=== PATIENT | female | born 1990 | race Two or more races ===

== ENCOUNTER 2023-09-15 19:57 | Inpatient (IN) | payer MEDICAID, OTHER ==
[~2023-09-15] VITALS: Ht 154.9 cm; Wt 83.9 kg
[2023-09-15] MEDS ORDERED: PROMETHAZINE HCL 25 MG/ML 1ML IV PRN (20:45)
[2023-09-15] MEDS ORDERED: WITCH HAZEL-GLYCERIN PAD TOP PRN (20:45)
[2023-09-15] MEDS ORDERED: PENICILLIN G POT 5MIL/D5 50ML 50 ML IV ONE (20:45)
[2023-09-15] MEDS ORDERED: LIDOCAINE 2%HCL (LOCAL ANESTH.) INJ 20ML MDV IJ PRN (20:45)
[2023-09-15] MEDS ORDERED: PHISODERM TOP SOLN 240ML BTL TOP PRN (20:45)
[2023-09-15] MEDS ORDERED: LACTATED RINGER'S 1,000 ML IV SCH ×2 (20:45→21:30)
[2023-09-15] MEDS ORDERED: DERMOPLAST 60ML BOTTLE TOP PRN (20:45)
[2023-09-15] MEDS ORDERED: MAGNESIUM SULFATE 100 ML IV ONE ×2 (21:10→21:30)
[2023-09-15] MEDS ORDERED: MAGNESIUM SULFATE 40MG/ML 1,000 ML IV ONE (21:10)
[2023-09-15] MEDS ORDERED: LORazepam 2MG/ML-1ML VIAL IV PRN (21:30)
[2023-09-15 21:41] LABS: Basophils # (auto) 0 10 ^3/uL (0-0.2); Basophils % (auto) 0.2 % (0.0-2.0); Eosinophils # (auto) 0.2 10 ^3/uL (0-0.8); Eosinophils % (auto) 2.4 % (0.0-7.0); Hemoglobin 10.6 g/dL (12.2-16.2); Lymphocytes # (auto) 2.6 10 ^3/uL (0.4-5.4); Lymphocytes % (auto) 29.2 % (10.0-50.0); Mean Corpuscular Hemoglobin 29.2 pg (28.0-32.0); Mean Corpuscular Hgb Conc. 33.2 g/dL (32.0-36.0); Mean Corpuscular Volume 87.8 fL (80.0-100.0); Monocytes # (auto) 0.8 10 ^3/uL (0-1.3); Monocytes % (auto) 8.6 % (0.0-12.0); Neutrophils # (auto) 5.2 10 ^3/uL (1.6-8.6); Neutrophils % (auto) 59.6 % (37.0-80.0); Nucleated Red Blood Cells % 0.2 %; Red Blood Cells 3.65 10^6/uL (4.0-5.20); Red Cell Distribution Width 13.7 % (11.8-14.3); White Blood Cell 8.8 10^3/uL (4.4-10.8)
[2023-09-15 21:57] LABS: INR 0.94 (0.9-1.15); Partial Thromboplastin Time 24.3 SEC (24.5-34.5); Prothrombin Time 9.9 sec (9.3-11.8)
[2023-09-15 22:00] LABS: Alanine Aminotransferase 46 U/L (7-40); Albumin 3.4 g/dL (3.2-4.8); Alkaline Phosphatase 176 U/L (46-116); Anion Gap 8 (5-15); Aspartate Aminotransferase 44 U/L (13-40); BUN/Creatinine Ratio 12.5 (10.0-20.0); Blood Urea Nitrogen 7 mg/dL (9-23); Calcium 8.3 mg/dL (8.7-10.4); Carbon Dioxide 21 mmol/L (20-30); Chloride 109 mmol/L (98-107); Glucose 72 mg/dL (74-106); Potassium 3.6 mmol/L (3.5-5.1); Sodium 138 mmol/L (136-145); Uric Acid 4.2 mg/dL (3.1-7.8)
[2023-09-15 22:01] LABS: Bilirubin, Total 0.4 mg/dL (0.2-1.0); Total Protein 5.7 g/dL (5.7-8.2)
[2023-09-15 22:53] LABS: COVID19 ANTIGEN SOFIA FIA NEGATIVE (NEGATIVE)
[2023-09-15 23:10] LABS: Urine Bacteria NONE SEEN /hpf (None Seen); Urine Blood Negative /uL (Negative); Urine Clarity Clear (Clear); Urine Color Yellow (Yellow); Urine Mucus FEW (None Seen); Urine Protein, UAD 2+ (Negative); Urine Specific Gravity 1.019 (1.001-1.035); Urine Urobilinogen Normal (Negative); Urine WBC 1 /hpf (0 - 5)
[2023-09-15 23:20] LABS: Protein, Urine 192.1 mg/dL (0.0-11.9)
[2023-09-15 23:22] LABS: Amphetamine Screen, Urine Neg (NEGATIVE)
[2023-09-15 23:23] LABS: Barbiturate Scree,Urine Neg (NEGATIVE); Benzodiazephine Screen, Urine Neg (NEGATIVE); Cannabinoid Screen, Urine Neg (NEGATIVE); Cocaine Screen, Urine Neg (NEGATIVE); Creatinine, Urine 98.81 mg/dL (30.0-125.0); Opiate Scree,Urine Neg (NEGATIVE); Phencyclidine Screen, Urine Neg (NEGATIVE); Urine Protein/Creatinine Ratio 1.94
[2023-09-16] VITALS (8 sets, daily range): BP systolic 119–149; BP diastolic 66–93; PULSE 77–99; RESP 15–18; TEMP 98.6–98.7; O2SAT 95–99
[2023-09-16] MEDS ORDERED: PENICILLIN G POTASSIUM 2,500,000 UNITS in D5W 5% 50 ML IV SCH (00:45)
[2023-09-16] MEDS ORDERED: NALOXONE HCL 0.4 MG/ML VIAL IV ONE (02:00)
[2023-09-16] MEDS ORDERED: LACT. RINGERS/OXYTOCIN 20UNITS 1,000 ML IV SCH (02:00)
[2023-09-16] MEDS ORDERED: CARBOPROST TROMETHAMINE 250 MCG/1ML VIAL IM PRN (02:00)
[2023-09-16] MEDS ORDERED: LACT. RINGERS/OXYTOCIN 20UNITS 500 ML IV ONE ×2 (02:00→02:30)
[2023-09-16] MEDS ORDERED: miSOPROStol 100 mcg TAB SL PRN (02:00)
[2023-09-16] MEDS ORDERED: ePHEDrine SULFATE 50 MG/ML AMP IV ONE (02:00)
[2023-09-16] MEDS ORDERED: ROPIVACAINE HCL 200 ML EPI SCH ×2 (02:00→03:00)
[2023-09-16] MEDS ORDERED: miSOPROStol 100 mcg TAB PR PRN (02:00)
[2023-09-16] MEDS ORDERED: LACTATED RINGER'S 1,000 ML IV ONE (02:00)
[2023-09-16] MEDS ORDERED: TERBUTALINE SULFATE 1 MG/ML 1ML VIAL SC PRN (02:00)
[2023-09-16] MEDS ORDERED: ONDANSETRON HCL 4 MG/2 ML VIAL IV PRN (06:45)
[2023-09-16] MEDS ORDERED: ACETAMINOPHEN 325 MG TAB PO STA (08:39)
[2023-09-16] MEDS ORDERED: ACETAMINOPHEN 325 MG TAB PO ONE (09:03)
[2023-09-16] MEDS ORDERED: HYDROcodone-ACET 5/325MG TAB PO PRN (11:00)
[2023-09-16] MEDS: LACTATED RINGER'S 1,000 ML IV SCH (11:15)
[2023-09-16] MEDS: IBUPROFEN 600 MG TAB PO PRN (16:09)
[2023-09-16] MEDS: DIPHENOXYLATE W/ATROPINE 2.5 MG TAB PO SCH (16:13)
[2023-09-16] MEDS: LABETALOL HCL 200 MG TAB PO SCH (18:35)
[2023-09-16] MEDS: DOCUSATE SOD 100 MG CAP PO SCH (21:36)
[2023-09-17 03:20] VITALS: BP 132/66; PULSE 65; RESP 18; TEMP 98.7; O2SAT 96
[2023-09-17] MEDS: LABETALOL HCL 200 MG TAB PO SCH ×2 (06:39→18:28)
[2023-09-17 06:56] VITALS: BP 122/71; PULSE 80; RESP 17; TEMP 97.6; O2SAT 96
[2023-09-17] MEDS: DIPHENOXYLATE W/ATROPINE 2.5 MG TAB PO SCH ×2 (10:00→22:00)
[2023-09-17 10:57] VITALS: BP 116/56; PULSE 75; RESP 17; TEMP 97.7; O2SAT 97
[2023-09-17] MEDS: LACTATED RINGER'S 1,000 ML IV SCH (11:15)
[2023-09-17 14:55] VITALS: BP 128/81; PULSE 84; RESP 17; TEMP 97.7; O2SAT 97
[2023-09-17] MEDS: IBUPROFEN 600 MG TAB PO PRN (18:32)
[2023-09-17 18:35] VITALS: BP 128/68; PULSE 81; RESP 18; TEMP 98.8; O2SAT 97
[2023-09-17] MEDS: DOCUSATE SOD 100 MG CAP PO SCH (22:27)
[2023-09-17 22:31] VITALS: BP 136/81; PULSE 72; RESP 18; TEMP 98.9; O2SAT 96
[2023-09-18 03:18] VITALS: BP 136/80; PULSE 75; RESP 18; TEMP 98.8; O2SAT 97
[2023-09-18] MEDS: LABETALOL HCL 200 MG TAB PO SCH (06:30)
[2023-09-18 06:44] VITALS: BP 145/83; PULSE 69; RESP 18; TEMP 97.9; O2SAT 97
[2023-09-18 06:46] VITALS: O2SAT 97
[2023-09-18 07:09] LABS: Basophils # (auto) 0 10 ^3/uL (0-0.2); Basophils % (auto) 0.5 % (0.0-2.0); Eosinophils # (auto) 0.3 10 ^3/uL (0-0.8); Eosinophils % (auto) 3.8 % (0.0-7.0); Hematocrit 27.2 % (36.0-46.0); Lymphocytes # (auto) 2.2 10 ^3/uL (0.4-5.4); Lymphocytes % (auto) 31.7 % (10.0-50.0); Mean Corpuscular Hemoglobin 29.7 pg (28.0-32.0); Mean Corpuscular Volume 89.8 fL (80.0-100.0); Monocytes # (auto) 0.5 10 ^3/uL (0-1.3); Monocytes % (auto) 7.9 % (0.0-12.0); Neutrophils # (auto) 3.9 10 ^3/uL (1.6-8.6); Neutrophils % (auto) 56.1 % (37.0-80.0); Nucleated Red Blood Cells % 0.1 %; Red Blood Cells 3.02 10^6/uL (4.0-5.20); Red Cell Distribution Width 14.2 % (11.8-14.3); White Blood Cell 6.9 10^3/uL (4.4-10.8)
[2023-09-18] MEDS ORDERED: LABE200T6 PO (07:46)
[2023-09-18] MEDS ORDERED: IBU600T PO (07:46)
[2023-09-18] MEDS ORDERED: FER325T PO (07:52)
[2023-09-18 10:06] VITALS: BP 145/83; PULSE 86; RESP 18; TEMP 98.4; O2SAT 97
[2023-09-19 03:07] LABS: Rubella Antibodies, IgG 1.18 index (Immune >0.99)
[2023-09-19 07:06] LABS: RPR Non Reactive (Non Reactive)
[2023-09-19 22:06] LABS: Treponema pallidum Ab (FTA-Ab) Non Reactive (Non Reactive)
== END 2023-09-18 10:06 | disposition home or self-care (01) | DRG 560 ==
LOC: UNDOADMOB 19:57 → LDRP 19:57 → INTOOBSV 20:46 → OBSVTOIN 20:46 → LDRP 20:46
PROVIDERS: ADMIT Obstetrics & Gynecology; ATTEND Obstetrics & Gynecology
PROC: 10D07Z6 Extraction of Products of Conception, Vacuum, Via Natural or Artificial Opening (ICD-10-PCS; principal; 2023-09-16)
PROC: 3E0R3BZ Introduction of Anesthetic Agent into Spinal Canal, Percutaneous Approach (ICD-10-PCS; 2023-09-16)
PROC: 00HU33Z Insertion of Infusion Device into Spinal Canal, Percutaneous Approach (ICD-10-PCS; 2023-09-16)
DX: O16.4 Unspecified maternal hypertension, complicating childbirth (principal); Z37.0 Single live birth; O14.14 Severe pre-eclampsia complicating childbirth; D50.9 Iron deficiency anemia, unspecified; O99.02 Anemia complicating childbirth; Z3A.38 38 weeks gestation of pregnancy; Z20.822 Contact with and (suspected) exposure to COVID-19
CPT/HCPCS: 36415; 59025; 59409; 62282; 76805; 76818; 80053; 80307; 81001; 81002; 82570; 83735; 84156; 84550; 85025; 85610; 85730; 86592; 86703; 86762; 86850; 86900; 86901; 87340; 87426; 94760; 94762; 96360; 96361; 96365; 96366; 96374; G0378; J2405; J2540; J2590; J7060